=== PATIENT | female | born 1990 | race Caucasian/White ===

== ENCOUNTER 2016-08-17 17:21 | Emergency (ER) | payer OTHER ==
[~2016-08-17] VITALS: Ht 154.9 cm; Wt 93.0 kg
[~2016-08-17 17:21] MED LIST: BROMFED DM COU473 ML PO; DOCUSATE SODIU100 MG PO; IBUPROFEN800 MG PO; PERCOCET 325 MG1 TA2 PO; ZITHROMAX Z-PA250 M1 PO
[2016-08-17 17:37] VITALS: BP 135/86
[2016-08-17] MEDS ORDERED: OXYCODONE HCL5 M2 PO (19:16)
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
== END 2016-08-17 19:27 ==
LOC: ERH 17:21
DX: M54.2 Cervicalgia (principal)
CPT/HCPCS: 96372; J1885